=== PATIENT | male | born 1995 | race Caucasian/White ===

== ENCOUNTER 2020-03-18 20:32 | Emergency (ER) | payer BC, OTHER ==
[~2020-03-18] VITALS: Ht 193 cm; Wt 131.8 kg
[~2020-03-18 20:32] MED LIST: DIPH-423 PO; FAMO-128 PO; MINE120C3 TOP; NO HOME MEDS
[2020-03-18] MEDS ORDERED: TETanus/Pertussis (Acell)/Diphther VAC/PF (Tdap-Adult) 0.5ml syringe IMVAC ONE (22:10)
[2020-03-18] MEDS ORDERED: LIDOcaine 1% W/epiNEPHrine 1:200,000 10ml vial IJ ONE (22:10)
[2020-03-18] MEDS ORDERED: CEPH-572 PO (22:25)
[2020-03-18] MEDS ORDERED: SULF1TAB49 PO (22:25)
[2020-03-18] MEDS ORDERED: sulfamethoxazole/trimethoprim DS (800/160mg) tablet PO ONE (22:30)
[2020-03-18 23:25] VITALS: BP 131/87
== END 2020-03-18 23:26 | disposition home or self-care (01) ==
LOC: ER 20:35
DX: K61.1 Rectal abscess (principal); M54.5 Low back pain; R20.0 Anesthesia of skin; Z79.2 Long term (current) use of antibiotics; Z79.899 Other long term (current) drug therapy
CPT/HCPCS: 10060; 46040; 90471; 90715; 99283; 99284